=== PATIENT | male | born 2000 | race Caucasian/White ===

== ENCOUNTER 2019-08-27 20:21 | Emergency (ER) | payer SELFPAY ==
[2019-08-27] VITALS (28 sets, daily range): BP systolic 114–141; BP diastolic 40–107; PULSE 74; RESP 20–22; TEMP 36.4; O2SAT 75–100; BMI 21.2
--- NOTE | 2019-08-27 20:53 | ED_ITS ---
HPI - Abdominal Pain General: Chief Complaint: Abdominal Pain Stated Complaint: ABD PAIN Time Seen by Provider: 08/27/19 20:45 History of Present Illness: HPI narrative: Mr. Mathur is a nice 19-year-old male comes in complaining of upper abdominal pain predominantly in the right upper quadrant. He is associated nausea and vomiting. He denies any fevers or chills. He denies any diarrhea but had a normal bowel movement today so denies constipation. Denies any blood in his stools, cough, shortness of breath, chest pain or other complaints. He is unaware of anything that makes his pain better or worse and denies have anything similar in the past. He is not tried anything at home for this up to this point. Associated Symptoms: Reports nausea and vomiting; Denies chills, coffee ground emesis, constipation, GI cramping, diarrhea, dysuria, fever(s), hematochezia, hematuria, hematemesis, melena and syncope Review of Systems General: Reports: other (negative unless marked) Const: Denies: fever, chills, body aches, fatigue, malaise or diaphoresis Eyes: Denies: change in vision or blurry vision ENMT: Denies: throat pain, painful swallowing, hoarseness, ear pain, ear discharge, Change in hearing or nasal discharge Card: Denies: chest pain, palpitations, irregular heart rhythm, syncope, pre- syncope, shortness of breath on exertion or shortness of breath when lying down Resp: Denies: shortness of breath, productive cough, non-productive cough, wheezing, coughing up blood or chest congestion GI: Reports: abdominal pain, nausea and vomiting; Denies: vomiting blood, coffee grounds in vomit, diarrhea, constipation, cramping, blood in stool or black tarry stool : Denies: flank pain, difficulty urinating, painful urination, urinary frequency, urinary urgency, decreased urine ouput, urinary incontinence or blood in urine Musc: Denies: neck pain, back pain, extremity pain, extremity swelling, joint pain, joint swelling, joint warmth or joint stiffness Skin/Breast: Denies: rash, skin tenderness or yellow skin Neuro: Denies: headache, numbness in extremities, weakness in extremities, changes in sensation, lack of coordination, difficulty walking, dizziness, vertigo or confusion Endo: Denies: excessive thirst, tired all the time, cold intolerance, excessive sweating, flushing or hot flashes Emre/Lymph: Denies: easy bruising, easy bleeding, petechiae or enlarged lymph nodes All/Imm: Denies: hives, throat swelling, tongue swelling, facial swelling or acute wheezing PFSH ED PFSH: Medical History (Updated 08/28/19 @ 00:28 by Alyse Mcfarland) Asthma Peptic ulcer disease Surgical History (Updated 08/27/19 @ 22:29 by Alyse Mcfarland) No history of previous surgery Social History Smoking and tobacco status: light tobacco smoker Physical Exam Const: COMMON NORMALS: no apparent distress, oriented x3, no limitations, healthy appearing and well nourished EXAM LIMITATIONS: no altered mental status GENERAL APPEARANCE: cooperative, well kempt and well developed ORIENTATION/CONSCIOUSNESS: Yes awake HENMT: COMMON NORMALS: normocephalic, head/scalp atraumatic, hearing grossly normal bilaterally, external ears normal, EAC's normal, external nose normal and moist oral mucous membranes HEAD & SCALP: normal to inspection, normocephalic and atraumatic FACE & SINUS: normal facial exam and face symmetric NOSE: external nose normal and nares normal EXTERNAL EAR: Yes external ears normal EXTERNAL AUDITORY CANAL: EAC's normal MOUTH: oral and palatal mucosa normal and tongue normal Eye: COMMON NORMALS: PERRL, EOMs intact bilaterally, conjunctivae normal and no scleral icterus GENERAL EYE: normal appearance of both eyes and normal light reflex CONJUNCTIVA: Yes conjunctivae normal SCLERA: sclerae normal CORNEA: Yes corneas normal PUPIL: Yes PERRL DIRECT OPHTHALMOSCOPY: Yes normal light reflex Neck/C-Spine: COMMON NORMALS: full ROM, no lymphadenopathy, supple, no meningeal signs and no JVD GENERAL: Yes normal visual inspection and Yes t rachea midline CERVICAL SPINE: Yes cervical ROM normal Chest: COMMONS NORMALS: inspection of chest normal and palpation of chest normal Resp: COMMON NORMALS: normal respiratory effort, no retractions, no use of accessory muscles and clear to auscultation bilaterally EFFORT & INSPECTION: Yes able to speak in complete sentences AUSCULTATION: clear to auscultation bilaterally Cardio: COMMON NORMALS: no JVD, regular rate, regular rhythm, S1 normal heart sound, S2 normal heart sound, no gallops, no clicks, no murmurs and no rub JUGULAR VENOUS DISTENTION: no JVD RATE: regular rate RHYTHM: regular rhythm HEART SOUNDS: S1 normal and S2 normal GI: COMMON NORMALS: soft to palpation, no hepatosplenomegaly and no masses PALPATION: Yes soft, Yes tender (MILD DIFFUSLY) and Yes no hepatosplenomegaly : COMMON NORMALS: Yes no CVA tenderness BLADDER/KIDNEY EXAM: Yes no CVA tenderness Back/Pelvis: COMMON NORMALS: no CVA tenderness, thoracic and lumbar spine normal to inspection, no thoracic nor lumbar tenderness and thoraco-lumbar ROM normal Extremity: COMMON NORMALS: normal to inspection, full ROM, normal capillary refill, no joint enlargement, no clubbing, cyanosis or edema and no calf tenderness Neuro: COMMON NORMALS: oriented x3, CN's II-XII intact bilaterally, moves all extremities, no focal motor deficits and no sensory deficits noted MENINGEAL SIGNS: Yes no meningeal signs Psych: COMMON NORMALS: mental status grossly normal, thought process normal, cooperative, affect normal, speech normal and activity/motor behavior normal APPEARANCE: Yes well kempt SPEECH: Yes normal speech THOUGHT PROCESS: normal thought process Skin: COMMON NORMALS: no rashes or lesions noted, skin turgor normal, no jaundice, no petechiae and no mottling GENERAL SKIN EXAM: no rashes or lesions noted and turgor normal Course Vital Signs: Vital signs: Vital Signs Temperature 97.6 F 08/27/19 20:45 Pulse Rate 74 08/27/19 20:45 Respiratory Rate 20 H 08/27/19 23:06 Blood Pressure 127/63 08/27/19 22:05 Pulse Oximetry 99 08/27/19 22:05 MDM - Abdominal Pain MDM Narrative: Medical decision making narrative: Rd is a very nice 19-year-old male who comes in complaining of right-sided abdominal pain. His ultrasound came back negative for any gallbladder issues but there was questionable mild right hydronephrosis and a questionable bladder mass by the alternative energy technician. CT scan with and without IV contrast revealed no evidence of gallbladder disease or appendicitis. It did show a 5 x 3 mm distal right ureteral calculus that was either in the UVJ or in the dependent portion of the bladder. There was a question of ureteritis or pyelonephritis but the patient has no evidence of infection on his urinalysis. Nonetheless because of this trauma from the calculus I will place him on empiric/prophylactic antibiotics, something for pain in case that is still intraureteral and have him follow-up with Dr. Hardwick. The patient is feeling much better at this time and agrees to follow-up as directed or return here as instructed. Lab Data: Attestation: I reviewed the patient's lab results. Labs: Lab Results 08/27/19 08/27/19 08/27/19 Range/Units 20:52 20:52 20:52 WBC 11.9 (4.5-13.0) 10^3/ uL RBC 4.39 (4.1-5.3) 10^6/u L Hgb 14.0 (11.7-16.6) g/dL Hct 40.0 L (42.0-52.0) % MCV 91.1 (80-94) fL MCH 31.9 (28.0-34.0) pg MCHC 35.0 (30.0-36.0) g/dL RDW 12.1 (12.1-15.1) % Plt Count 224 (130-400) 10^3/c mm MPV 10.1 (7.4-10.4) fL Neut % (Auto) 85.1 % Lymph % (Auto) 9.8 % Mcduffie % (Auto) 4.2 % Eos % (Auto) 0.3 % Baso % (Auto) 0.3 % Neut # (Auto) 10.1 H (1.8-8.0) 10^3/u L Lymph # (Auto) 1.2 L (1.5-6.5) 10^3/u L Mcduffie # (Auto) 0.5 (0.2-0.9) 10^3/u L Eos # (Auto) 0.0 (0.0-0.8) 10^3/u L Baso # (Auto) 0.0 (0.0-0.1) 10^3/u L Nucleated RBC % (a uto) 0 % Nucleated RBCs # 0.0 /100WBC Sodium 140 (136-145) mmol/L Potassium 3.9 (3.5-5.1) mmol/L Chloride 102 (98-107) mmol/L Carbon Dioxide 27 (22-29) mmol/L Anion Gap 14.9 (5-19) BUN 13 (6-20) mg/dL Creatinine 1.1 (0.7-1.2) mg/dL GFR Calculation 85.3 L (90-130) mL/min Glucose 129 H (65-115) mg/dL Calculated Osmolal ity 288 (285-295) mOsm/k g Calcium 9.8 (8.5-10.5) mg/dL Total Bilirubin 0.2 (0.15-1.2) mg/dL AST 17 (0-40) U/L ALT 12 (0-41) U/L Alkaline Phosphata se 92 (40-130) IU/L Total Protein 6.8 (6.6-8.7) g/dL Albumin 4.6 (3.5-5.2) g/dL Globulin 2.2 (1.3-4.6) g/dL Lipase 22 (13-60) U/L Urine Color (Yellow) Urine Appearance (CLEAR) Urine pH (5-7) Ur Specific Gravit y (1.005-1.030) Urine Protein (Negative) Urine Glucose (UA) (Normal) Urine Ketones (Negative) Urine Blood (Negative) Urine Nitrate (Negative) Urine Bilirubin (NEGATIVE) Urine Urobilinogen (Negative) mg/dL Ur Leukocyte Maxine ase (Negative) Urine RBC (0-2) /hpf Urine WBC (0-5) /hpf Ur Squamous Epith Cells (0-5) Amorphous Sediment Urine Bacteria (NONE) H. pylori IgG Anti body Negative (Negative) 08/27/19 Range/Units 21:45 WBC (4.5-13.0) 10^3/ uL RBC (4.1-5.3) 10^6/u L Hgb (11.7-16.6) g/dL Hct (42.0-52.0) % MCV (80-94) fL MCH (28.0-34.0) pg MCHC (30.0-36.0) g/dL RDW (12.1-15.1) % Plt Count (130-400) 10^3/c mm MPV (7.4-10.4) fL Neut % (Auto) % Lymph % (Auto) % Mcduffie % (Auto) % Eos % (Auto) % Baso % (Auto) % Neut # (Auto) (1.8-8.0) 10^3/u L Lymph # (Auto) (1.5-6.5) 10^3/u L Mcduffie # (Auto) (0.2-0.9) 10^3/u L Eos # (Auto) (0.0-0.8) 10^3/u L Baso # (Auto) (0.0-0.1) 10^3/u L Nucleated RBC % (a uto) % Nucleated RBCs # /100WBC Sodium (136-145) mmol/L Potassium (3.5-5.1) mmol/L Chloride (98-107) mmol/L Carbon Dioxide (22-29) mmol/L Anion Gap (5-19) BUN (6-20) mg/dL Creatinine (0.7-1.2) mg/dL GFR Calculation (90-130) mL/min Glucose (65-115) mg/dL Calculated Osmolal ity (285-295) mOsm/k g Calcium (8.5-10.5) mg/dL Total Bilirubin (0.15-1.2) mg/dL AST (0-40) U/L ALT (0-41) U/L Alkaline Phosphata se (40-130) IU/L Total Protein (6.6-8.7) g/dL Albumin (3.5-5.2) g/dL Globulin (1.3-4.6) g/dL Lipase (13-60) U/L Urine Color Yellow (Yellow) Urine Appearance Cloudy (CLEAR) Urine pH 8 H (5-7) Ur Specific Gravit y 1.010 (1.005-1.030) Urine Protein Neg (Negative) Urine Glucose (UA) Norm (Normal) Urine Ketones Negative (Negative) Urine Blood 3+ H (Negative) Urine Nitrate Negative (Negative) Urine Bilirubin Neg (NEGATIVE) Urine Urobilinogen Norm (Negative) mg/dL Ur Leukocyte Maxine ase Negative (Negative) Urine RBC 5-10 H (0-2) /hpf Urine WBC 0-4 H (0-5) /hpf Ur Squamous Epith Cells 0-4 H (0-5) Amorphous Sediment 2+ Urine Bacteria 1+ H (NONE) H. pylori IgG Anti body (Negative) Imaging Data ^: US: Radiologist's impression: The ultrasound abdomen, technologist interpretation - no acute findings in the upper abdomen. Questionable mass in the bladder. Discharge Plan Discharge Patient Disposition: Home, Self-Care Clinical Impression: Ureteral calculus, right Condition: Stable Prescriptions: [place] 5-325 mg tablet 1 tab PO Q6H PRN (Reason: pain) 5 Days Qty: 20 RF: 0 Zofran 4 mg tablet 4 mg PO Q6H PRN (Reason: nausea and vomiting) Qty: 20 RF: 0 Keflex 500 mg capsule 500 mg PO QID 10 Days Qty: 40 RF: 0 Discharge Orders: Discharge Order (Routine); Ordered 08/28/19 Ordered By: Alyse Mcfarland Referrals: Mark Hardwick MD [Physician] - 1-3 days Discharge Diet: Advance as tolerated Discharge Activity: Increase activity as tolerated Patient Instructions: Kidney Stones (ED), Renal Colic (ED), How to Strain Your Urine (ED) Activity Restrictions/Additional Instructions: Please return to the ER immediately for any of the signs or symptoms listed on your discharge instruction sheets, worsening/changing of your symptoms, you are not getting better as quickly as expected, or for ANY other cause or concerns. Return to the ER for fever, uncontrolled vomiting, uncontrolled pain, or for any other cause for concern. Be certain to follow-up with Dr. Hardwick in the next few days for recheck. Coding Level of Care Code ED Adult Live In Caregiver for [place] Fwd Exam Comprehensive
[2019-08-27 21:02] LABS: Basophils % 0.3 %; Eosinophils % 0.3 %; Lymphocytes # 1.2 10^3/uL (1.5-6.5); Lymphocytes % 9.8 %; Mean Corpuscular Hemoglobin 31.9 pg (28.0-34.0); Mean Corpuscular Volume 91.1 fL (80-94); Mean Platelet Volume 10.1 fL (7.4-10.4); Monocytes # 0.5 10^3/uL (0.2-0.9); Monocytes % 4.2 %; Neutrophils # 10.1 10^3/uL (1.8-8.0); Neutrophils % 85.1 %; Nucleated Red Blood Cells % 0 %; Platelet Count 224 10^3/cmm (130-400); Red Blood Count 4.39 10^6/uL (4.1-5.3); Red Cell Distribution Width 12.1 % (12.1-15.1); White Blood Count 11.9 10^3/uL (4.5-13.0)
[2019-08-27] MEDS: HYDROmorphone 1 mg/mL INJ 1 mL 0.5 MG IVP ×2 (21:18→21:49)
[2019-08-27] MEDS: ondansetron 2 mg/ML SDV 2 mL 4 MG IVP (21:19)
[2019-08-27] MEDS: pantoprazole 40 mg SDV 80 MG IVP (21:20)
[2019-08-27] MEDS: sodium chloride 0.9% 1,000 ML 999 ML IV ×2 (21:21→21:24)
[2019-08-27] MEDS: sodium chloride 0.9% 1,000 ML 100 ML IV ×2 (21:21→23:15)
[2019-08-27 21:28] LABS: H. Pylori IgG Antibody Negative (Negative)
[2019-08-27 21:32] LABS: Alanine Aminotransferase 12 U/L (0-41); Albumin Level 4.6 g/dL (3.5-5.2); Alkaline Phosphatase 92 IU/L (40-130); Anion Gap 14.9 (5-19); Aspartate Amino Transferase 17 U/L (0-40); Blood Urea Nitrogen 13 mg/dL (6-20); Calcium 9.8 mg/dL (8.5-10.5); Carbon Dioxide 27 mmol/L (22-29); Chloride 102 mmol/L (98-107); Globulin 2.2 g/dL (1.3-4.6); Glomerular Filtration Rate 85.3 mL/min (90-130); Glucose 129 mg/dL (65-115); Lipase 22 U/L (13-60); Osmolality Calculated 288 mOsm/kg (285-295); Potassium 3.9 mmol/L (3.5-5.1); Sodium 140 mmol/L (136-145); Total Bilirubin 0.2 mg/dL (0.15-1.2); Total Protein 6.8 g/dL (6.6-8.7)
--- NOTE | 2019-08-27 22:50 | CTR_ITS ---
PROCEDURE INFORMATION: Exam: CT Abdomen And Pelvis Without And With Contrast Exam date and time: 08/27/2019 11:18 PM Age: 19 years old Clinical indication: Nausea and vomiting; Abdominal pain; Localized; Right lower quadrant (rlq) TECHNIQUE: Imaging protocol: Computed tomography of the abdomen and pelvis without and with intravenous contrast. Total DLP: 831.17 mGy-cm Radiation optimization: All CT scans at this facility use at least one of these dose optimization techniques: automated exposure control; mA and/or kV adjustment per patient size (includes targeted exams where dose is matched to clinical indication); or iterative reconstruction. Contrast material: OMNI 300; Contrast volume: 95 ml; Contrast route: IV; COMPARISON: CT abdomen pelvis w con* [id number] 04/22/2018 4:01 AM FINDINGS: Lungs: The lung bases are clear. Liver: Unremarkable. Gallbladder and bile ducts: No definite gallbladder abnormality by CT. No biliary tree dilation. Pancreas: Unremarkable. Spleen: Unremarkable. Adrenals: Unremarkable. Kidneys and ureters: Delayed concentration of contrast by the right kidney. Mild right perinephric and periureteric stranding/fluid. Moderate right hydronephrosis and hydroureter. There is a 5 x 3 mm distal right ureteral calculus, at the UVJ. The calculus is probably in the intramural portion of the distal ureter. It is possible that it has already been passed into the urinary bladder. Please correlate clinically. There appears to be some thickening of the right ureteral wall. Associated ureteritis/pyelonephritis might also be considered. No definite/visible intrarenal calculus. The left kidney appears essentially unremarkable. Stomach and bowel: There are no CT findings to strongly suggest diverticulitis. Appendix: The appendix is visualized and appears normal. Intraperitoneal space: No free air, ascites, or bowel distention. Vasculature: No evidence for abdominal aortic aneurysm. Lymph nodes: No retroperitoneal adenopathy. Bladder: Possibly some mild diffuse urinary bladder wall thickening. While nonspecific, this could indicate evidence for cystitis. Please correlate clinically. Reproductive: Essentially unremarkable for age. Bones/joints: No significant acute finding. Soft tissues: No significant acute finding. CT/CT abdomen pelvis wo/w [id number] IMPRESSION: 1. 5 x 3 mm distal right ureteral calculus, see above discussion. 2. Moderate right hydronephrosis and hydroureter. 3. There appears to be some thickening of the right ureteral wall. Associated ureteritis/pyelonephritis might also be considered. 4. Possible mild urinary bladder wall thickening, see above. 5. Normal appendix. 6. Other findings discussed above. Radiation Dose CTDIVOL = (mGy): DLP = 831.17 (mGy-cm)
[2019-08-27 22:54] LABS: Bilirubin Urine Neg (NEGATIVE); Blood Urine 3+ (Negative); Glucose Urine UA Norm (Normal); Ketones Urine Negative (Negative); Leukocyte Esterase Urine Negative (Negative); Nitrate Urine Negative (Negative); Protein Urine Neg (Negative); Squamous Epithelial Cell Urine 0-4 (0-5); Urine Appearance Cloudy (CLEAR); Urine Color Yellow (Yellow); Urobilinogen Urine Norm (Negative); WBC Urine 0-4 /hpf (0-5); pH Urine 8 (5-7)
[2019-08-27 22:55] LABS: Amorphous Sediment Urine 2+; Bacteria Urine 1+
[2019-08-27] MEDS: HYDROmorphone 1 mg/mL INJ 1 mL IVP (23:06)
[2019-08-27] MEDS: iohexol 300 mg/mL 100 mL Btl IV (23:35)
[2019-08-28] VITALS (7 sets, daily range): BP systolic 119–129; BP diastolic 52–66; O2SAT 97–100
[2019-08-28] MEDS: cefTRIAXone 1,000 MG in sodium chloride 0.9% (plus) 50 ML 100 MG IV (00:30)
[2019-08-28] MEDS: ondansetron 2 mg/ML SDV 2 mL 4 MG IVP (00:31)
[2019-08-28] MEDS: ketorolac 30 mg/mL INJ 10 MG IVP (00:35)
--- NOTE | 2019-08-28 20:50 | US_ITS ---
WS: [id number] Complete ABDOMINAL ULTRASOUND HISTORY: Abdominal Pain COMPARISON: None available. Liver: 13.6 cm in length. Liver is normal size and echogenicity with no mass or intrahepatic dilatati on. Gallbladder: Normally distended with no gallstones, wall thickening or pericholecystic fluid. Gallbladder wall thickness: 0.2 cm. Pancreas: Normal size and echogenicity. CBD: 0.5 cm. Right kidney: 11.7 cm x 6.2 cm x 6.1 cm. Normal size kidney. Mild hydronephrosis. Left kidney: 10.1 cm x 4.6 cm x 4.8 cm. No mass, cortical thickening or hydronephrosis. Spleen: Normal size and echogenicity. Abdominal aorta and IVC are within normal limits. No ascites. Urinary bladder is well distended. There is a thick wall soft tissue mass with a fluid component in t he posterior RIGHT urinary bladder. Mass measures 3.4 x 2.5 cm. This is near the orifice of the RIGHT ureter. There is an area of increased echogenicity within the soft tissue. Calcification was noted o n recent CT. This could be an inflammatory process associated with the recently passed ureteral calci fication. US/US abdomen complete* [id number] IMPRESSION: 1. Mild RIGHT hydronephrosis. 2. Mixed echogenicity mass in the RIGHT posterior urinary bladder with associa toni calcification. Soft tissue thickening measures 3.4 x 2.5 cm. Could be an in flammatory mass associated with the ureteral calcification. Stone could be embe dded in the wall of the ureter leading to secondary inflammation. Anomalous ins ertion site of the ureter also should be considered. Recommend urological evalu ation and follow-up exams.
--- NOTE | 2019-08-29 12:40 | DCPLANNER ---
Addendum entered by Sherita Heck 08/30/19 09:47: Patient has a follow up appointment scheduled for Friday, August 30, 2019 at 9:[address] Hardwick. Clinic will call patient with appointment information. Original Note: manager parking had message to schedule a follow up appointment for patient with Dr. Hardwick. manager parking called the office of Dr. Hardwick, spoke with Naomie. manager parking gave clinic patients information. manager parking was told that patients information would be printed and given to Jeanine for review. Clinic will call patient with appointment information. manager parking will call for appointment information.
--- NOTE | 2019-10-10 08:01 | DCPLANNER ---
Patient did attend appointment scheduled with Dr. Gonzalez office.
== END 2019-08-28 00:44 | disposition home or self-care (01) ==
PROVIDERS: Emergency Provider Emergency Medicine
DX: N20.1 Calculus of ureter (principal); J45.909 Unspecified asthma, uncomplicated; K27.9 Peptic ulcer, site unspecified, unspecified as acute or chronic, without hemorrhage or perforation; F17.200 Nicotine dependence, unspecified, uncomplicated
CPT/HCPCS: 12345; 74178; 76700; 80053; 81001; 83690; 85025; 86677; 96361; 96365; 96374; 96375; 96376; 99284; C9113; J0696; J1170; J1885; J2405; J7030; Q9967

== ENCOUNTER 2019-09-01 10:16 | Outpatient (CLI) | payer SELFPAY ==
--- NOTE | 2019-09-01 10:29 | XR_ITS ---
WS: [id number] ABDOMEN 1 VIEW(S) HISTORY: URETERAL CALCULUS COMPARISON: 08/27/2019 Normal bowel gas pattern. No suspicious calcifications or masses. Recently described distal RIGHT ureteral calcification is not identified radiographically. No bone abnormality. XR/XR KUB [id number] IMPRESSION: Distal RIGHT ureteral calcification not identified radiographically.
== END 2019-09-01 10:17 | disposition home or self-care (01) ==
LOC: RADWPI 10:21
PROVIDERS: Visit Provider Nurse Practitioner Family
DX: N20.1 Calculus of ureter (principal)
CPT/HCPCS: 74018

== ENCOUNTER 2024-03-22 14:52 | Emergency (ER) | payer SELFPAY ==
[2024-03-22 15:05] VITALS: BP 124/67; PULSE 74; RESP 18; TEMP 36.8; O2SAT 100; BMI 21.9
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
[2024-03-22 16:21] VITALS: BP 133/78; PULSE 79; O2SAT 99
[2024-03-22 17:11] VITALS: BP 108/77; PULSE 80; O2SAT 100
--- NOTE | 2024-03-23 07:07 | DCPLANNER ---
messaged podiatry for er f/u
== END 2024-03-22 17:16 | disposition home or self-care (01) ==
PROVIDERS: Emergency Provider Physician Assistant
DX: S92.415A Nondisplaced fracture of proximal phalanx of left great toe, initial encounter for closed fracture (principal); S63.502A Unspecified sprain of left wrist, initial encounter; S20.229A Contusion of unspecified back wall of thorax, initial encounter; V89.2XXA Person injured in unspecified motor-vehicle accident, traffic, initial encounter; Z72.0 Tobacco use
CPT/HCPCS: 71045; 72040; 73090; 73110; 73552; 73630; 99284

== ENCOUNTER 2024-03-27 14:55 | Outpatient (CLI) | payer OTHER, SELFPAY | END 2024-03-27 14:56 | disposition home or self-care (01) | LOC: SPT 15:00 | PROVIDERS: Visit Provider Podiatrist Foot & Ankle Surgery | DX: Z46.89 Encounter for fitting and adjustment of other specified devices (principal); S92.405D Nondisplaced unspecified fracture of left great toe, subsequent encounter for fracture with routine healing; X58.XXXD Exposure to other specified factors, subsequent encounter | CPT/HCPCS: L3031 ==